=== PATIENT | female | born 1960 | race Caucasian/White ===

== ENCOUNTER 2023-11-16 09:53 | Emergency (ER) | payer MEDICAID ==
[~2023-11-16] VITALS: Ht 160 cm; Wt 68.7 kg
[~2023-11-16 09:53] MED LIST: DULO-31 PO; GABA600T13 PO; HYDR-4353 PO; LANTUS SUBCUT; SITA1TAB6 PO
[2023-11-16 10:45] VITALS: BP 138/70; PULSE 92; RESP 18; O2SAT 96
[2023-11-16 11:58] VITALS: TEMP 97.5
== END 2023-11-16 11:59 | disposition left against medical advice (07) ==
LOC: ER 09:55
DX: H57.13 Ocular pain, bilateral (principal); Z53.21 Procedure and treatment not carried out due to patient leaving prior to being seen by health care provider; Z88.1 Allergy status to other antibiotic agents